=== PATIENT | female | born 1965 | race Caucasian/White ===

== ENCOUNTER 2016-08-10 06:58 | Day surgery (SDC) | payer BC ==
[~2016-08-10 06:58] MED LIST: Lactated Ringers 1,000 ML IV SCH
[2016-08-10] MEDS ORDERED: Ondansetron 4 MG/2 ML SDV IVPUSH PRN (07:40)
[2016-08-10] MEDS ORDERED: Propofol 200 MG/20 ML SDV ONE ×2 (08:01→09:56)
[2016-08-10] MEDS ORDERED: fentaNYL 100 MCG/2 ML SDV ONE (08:01)
[2016-08-10 10:43] VITALS: BP 123/77
--- NOTE | 2016-08-10 13:49 | OR ---
DATE OF SURGERY: 08/10/2016. REFERRING PROVIDER: ASHLEIGH Gonzalez. PRE-OPERATIVE DIAGNOSES: 1. Screening colonoscopy. 2. Positive family history of colon cancer in father, who was in his late 80s when he was diagnosed. There is also family history of multiple siblings with hyperplastic polyps, but no known adenomas. POST-OPERATIVE DIAGNOSES: 1. Mild internal hemorrhoids, not acutely inflamed. 2. Tortuous colon, but otherwise normal. PROCEDURE: Colonoscopy. SURGEON: Mario Swanson M.D. ANESTHESIA: Monitored anesthesia care. BOWEL PREP: Good DESCRIPTION OF PROCEDURE: Patsy is a 51-year-old female who was brought to the endoscopy suite after discussing risks and benefits of the procedure. Informed consent was obtained for conscious sedation and colonoscopy with or without biopsy and/or polypectomy. We also discussed possibility of missed lesions. Pre-procedure exam was unremarkable. IV, oxygen, and monitors were placed. The patient was placed in the left lateral decubitus position. Sedation was administered and a digital rectal exam was performed which was unremarkable. Colonoscope was passed into the rectum and slowly advanced all the way to the cecum. The patient did have a rather tortuous colon, which did require some maneuvering along with abdominal pressure to obtain cecal intubation. Cecum was viewed and photographed. The colonoscope was slowly withdrawn and the mucosa was closed observed in a direct circumferential manner. The ascending colon was unremarkable. The transverse colon was unremarkable. The descending colon was unremarkable. The sigmoid colon was unremarkable. Retroflexion was performed and rectal mucosa was remarkable for some mild internal hemorrhoids, not acutely inflamed. Scope was removed. The patient tolerated the procedure well. The patient was monitored until that baseline status. Discharge instructions were reviewed and the patient was discharged in good condition. COMPLICATIONS: None. TOTAL TIME: 23 minutes. ESTIMATED BLOOD LOSS: None. RECOMMENDATIONS/FOLLOW-UP: We discussed the patient is probably good for another 7 years before repeating the scope. She is at slightly higher risk than average given the positive family history, although this was a late onset. This could change to 5 years if there is any interim change in family history in siblings. I would like to kindly thank Annalee Fontenot for this referral. DMB: 08/10/2016 09:47:11 MODL: 08/10/2016 13:38:50 /[id number] MARIA LUZ
== END 2016-08-10 10:35 | disposition home or self-care (01) ==
LOC: VM.SDS 06:58
PROVIDERS: ATTEND Family Medicine
DX: Z12.11 Encounter for screening for malignant neoplasm of colon (principal); K64.8 Other hemorrhoids; Q43.8 Other specified congenital malformations of intestine; Z88.2 Allergy status to sulfonamides; Z98.890 Other specified postprocedural states; Z79.899 Other long term (current) drug therapy; E03.9 Hypothyroidism, unspecified
CPT/HCPCS: 45378; J2405; J2704; J3010; J7120

== ENCOUNTER 2016-08-14 07:07 | Emergency (ER) | payer BC ==
[2016-08-14 07:33] VITALS: BP 134/82
[2016-08-14] MEDS ORDERED: HYDROmorphone 1 MG/ML Syringe IVPUSH ONE (07:36)
--- NOTE | 2016-08-16 07:52 | ER ---
Date of Service: 08/14/2016 SUBJECTIVE: Patsy presents to the emergency room with complaints of left- sided neck pain with radiation to the side of her face and head and down into her upper shoulder. The patient states that she had been running at the gym and after that noticed that she was experiencing this discomfort. She states that she has not been experiencing any numbness or tingling in her extremities. No difficulties with her vision or speech. She states that the discomfort is much worse when she moves her neck. She states that she has been taking ibuprofen which has not been of any benefit. PAST MEDICAL HISTORY: Hypothyroidism. MEDICATIONS: 1. Multivitamin. 2. Levothyroxine. ALLERGIES: Sulfa. REVIEW OF SYSTEMS: Again, denies any numbness or tingling in her extremities. No difficulties with speech or ambulation. No vision changes or other worrisome focal neuro symptoms. PHYSICAL EXAMINATION: General: This is a 51-year-old female patient, who is in moderate distress. Vital Signs: Blood pressure is 134/82, pulse rate 57, temperature is 35.5, blood pressure is 134/82, respiratory rate 16, O2 saturations 98%. Skin: Warm, pink, and dry. HEENT: Head is normocephalic, atraumatic. Eyes, PERRLA. Extraocular movements are intact. She does have tenderness with lateral movement flexion and extension of the cervical spine. This does reproduce the pain and causes spasm in the parietal region of the patient's scalp. No obvious erythema or discoloration to the skin. No obvious trauma noted. Neurologic: Cranial nerves 2 through 12 are intact. Her speech is fluent. Her gait is within normal limits. Romberg is negative. She has 5/5 strength in both her upper and lower extremities. EMERGENCY ROOM COURSE: The patient was given injection of Dilaudid 1 mg IM and Norflex 60 mg IM. She did report significant improvement in her discomfort. She remained stable in my care in the emergency room. ASSESSMENT: Cervical spine strain with radicular symptoms. PLAN: The patient will be discharged. [place] 10/325 with instructions to take 1 every 4-6 hours as needed for pain. Flexeril 10 mg 3 times daily for spasm. If she is continuing to have discomfort, I advised getting an MRI. In the meantime, we will start her on physical therapy to see if this helps with her symptoms. All questions were answered. MANISHAK: 08/15/2016 19:04:56 MODL: 08/15/2016 21:29:40 /[id number]
== END 2016-08-14 08:40 | disposition home or self-care (01) ==
LOC: VM.ED 07:07
DX: S16.1XXA Strain of muscle, fascia and tendon at neck level, initial encounter (principal); E03.9 Hypothyroidism, unspecified; Y93.02 Activity, running; Y92.89 Other specified places as the place of occurrence of the external cause
CPT/HCPCS: 96372; 99283; J1170; J2360

== ENCOUNTER 2021-10-31 08:04 | Day surgery (SDC) | payer BC ==
[~2021-10-31 08:04] MED LIST changes: +Sodium Chloride 0.9% 10 ML Syringe FLUSH PRN
[2021-10-31] MEDS ORDERED: Propofol 200 MG/20 ML SDV ONE ×2 (10:10→10:23)
[2021-10-31] MEDS ORDERED: fentaNYL 100 MCG/2 ML SDV ONE (10:10)
[2021-10-31 11:11] VITALS: BP 112/71; PULSE 70
== END 2021-10-31 11:32 | disposition home or self-care (01) ==
LOC: VM.SDS 08:04
PROVIDERS: ATTEND Surgery
DX: Z12.11 Encounter for screening for malignant neoplasm of colon (principal); Z80.0 Family history of malignant neoplasm of digestive organs; E03.9 Hypothyroidism, unspecified; F41.9 Anxiety disorder, unspecified; N60.12 Diffuse cystic mastopathy of left breast; N60.11 Diffuse cystic mastopathy of right breast; D50.9 Iron deficiency anemia, unspecified; Z79.890 Hormone replacement therapy; Z98.890 Other specified postprocedural states; Z79.899 Other long term (current) drug therapy
CPT/HCPCS: 00811; 45378; J2704; J3010; J7120